=== PATIENT | female | born 1960 | race Caucasian/White ===

== ENCOUNTER 2020-07-23 05:14 | Emergency (ER) | payer BC, OTHER ==
[2020-07-23] MEDS ORDERED: Morphine 4 MG/ML Syringe IVPUSH ONE (06:03)
[2020-07-23] MEDS ORDERED: Prochlorperazine 10 MG/2 ML SDV IVPUSH ONE (06:03)
[2020-07-23] MEDS ORDERED: Ketorolac 15 MG/ML SDV IVPUSH ONE (06:03)
--- NOTE | 2020-07-23 06:19 | EDM.PDOC ---
<Chas Stock - Last Filed: 07/23/20 07:12> ED HPI GENERAL MEDICAL PROBLEM - General Chief Complaint: Back Pain or Injury Stated Complaint: LOWER BACK ABD PAIN Time Seen by Provider: 07/23/20 05:19 - History of Present Illness INITIAL COMMENTS - FREE TEXT/NARRATIVE: HISTORY AND PHYSICAL: History of present illness: This 60-year-old female presents emergency department with a sudden onset of 6 to 7 hours of right upper quadrant pain. It is a bandlike sensation that goes around the chest but is mostly in the right upper quadrant and radiates towards the back. She did have some nausea and vomiting with this. No hematemesis or hematochezia. No diarrhea. She has had a similar episode in the past and it went away. She had a swallow study that was normal. She has never had her gallbladder checked. No recent alcohol ingestion. No urinary symptoms. No other associated signs or symptoms. No other modifying, aggravating or alleviating factors. Review of systems: A 10-point review of systems, other than pertinent positives and negatives as stated per HPI, is otherwise negative. Past medical history: As per history of present illness and as reviewed below otherwise noncontributory. Surgical history: As per history of present illness and as reviewed below otherwise noncontributory. Social history: No reported history of drug or alcohol abuse. Family history: As per history of present illness and as reviewed below otherwise noncontributory. Physical exam: VITAL SIGNS: Reviewed. GENERAL: Appears to be in acute pain. HEAD: No signs of head trauma. EYES: Pupils are equal. Extraocular motions intact. EARS: Hearing grossly intact. MOUTH: Oropharynx is normal. NECK: No adenopathy, no JVD. CHEST: Chest with clear breath sounds bilaterally. No wheezes, rales, or rho nchi. CARDIAC: Regular rate and rhythm. Normal S1 and S2, without murmurs, gallops, or rubs. VASCULAR: Peripheral pulses normal and equal in all extremities. ABDOMEN: Soft, right upper quadrant tenderness is mild. No distention. No rebound or guarding. No masses palpated. No CVA tenderness. MUSCULOSKELETAL: Good range of motion of all major joints. Extremities without clubbing, cyanosis or edema. NEUROLOGIC EXAM: Alert and oriented x 3. No focal sensory or motor deficits. Speech normal. Follows commands. PSYCHIATRIC: Mood normal. SKIN: No rash or lesions. Initial Differential Diagnosis & Plan: Cholecystitis, urolithiasis, choledocholithiasis, symptomatic cholelithiasis, gallstone pancreatitis, atypical presentation of pneumonia, ACS or PE. No hypoxemia. No significant swelling or hemoptysis. Doubt PE. No exertional symptoms. Pain was brought on by eating frozen pizza just before episode. More suggestive of biliary colic. Definitive disposition and diagnosis as appropriate pending reevaluation and review of above. denies pain at this time Pain Score (Numeric/FACES): 0 - Related Data Allergies Allergy/AdvReac Type Severity Reaction Status Date / Time No Known Allergies Allergy Verified 07/23/20 06:24 Home Meds: Home Meds atenoloL [Atenolol] 25 PO 07/23/20 [History] ED ROS GENERAL - Review of Systems Review Of Systems: See Below (noted) ED EXAM,LOWER BACK PAIN/INJURY - Physical Exam Exam: See Below (noted) ED LACERATION/WOUND PROCEDURES - Additional/Other Procedure(s) Other (Free Text) Procedure(s): Procedure: Limited Abdominal Ultrasound - Right Upper Quadrant Performed and interpreted by me; images recorded and archived Indication: Right upper quadrant/epigastric pain/flank pain Findings: - Gallstones are present -No pericholecystic fluid -Normal gallbladder wall thickness -Common bile duct not appreciated Interpretation: Gallstones are present No significant gallbladder wall thickening Common bile duct not appreciated Signed by Chas Stock M.D. #1 Interpretation EKG Interpretation Comments: 12 lead EKG interpretation Obtained: July 23, 2020 at 7:05 AM Rhythm: Sinus Rate: In V2 [place]: Normal Intervals: Normal ST/T Segments: No acute ischemic changes Interpretation: Sinus Rhythm Course - Re-Assessments/Exams Free Text/Narrative Re-Assessment/Exam: 07/23/20 07:14 It appears the patient has acute cholecystitis. She has a thickened gallbladder wall, right upper quadrant pain, gallstones, and will likely need surgical consultation. I will be signing out my patient to Dr. Raines, emergency medicine, and he will follow-up on the patient's complete metabolic panel which is still pending at time of discharge. I have ordered Zosyn as empiric coverage for antibiotics. My diagnostic impression: 1. Acute cholecystitis 2. History of COVID-19 infection recently tested negative Departure - Departure Disposition: Refer to Observation Clinical Impression: Acute cholecystitis - Discharge Information Referrals: Hawa Johnson ACCREDITED PHARMACY TECHNICIAN [Primary Care Provider] - Forms: ED Department Discharge <Oscar Raines - Last Filed: 07/23/20 07:58> ED HPI GENERAL MEDICAL PROBLEM - General Source of Information: Reports: Patient History Limitations: Reports: No Limitations Course - Vital Signs Last Recorded V/S: Last Vital Signs Temp 97.2 F 07/23/20 06:06 Pulse 111 H 07/23/20 06:06 Resp 18 07/23/20 06:06 BP 112/64 07/23/20 06:06 Pulse Ox 95 07/23/20 06:06 - Orders/Labs/Meds Orders: Active Orders 24 hr Category Date Time Status Patient Status [ADT] Routine ADT 07/23/20 07:55 Ordered EKG 12 Lead [EKG Documentation Completion] [RC] STAT Care 07/23/20 06:02 Active CORONAVIRUS COVID-19 PCR PHL Stat Lab 07/23/20 07:53 Ordered UA RFX ADELA AND CULT IF INDIC [URIN] Stat Lab 07/23/20 06:02 Ordered Piperacillin/Tazobactam [Piperacil-Tazobact] 4.5 gm Med 07/23/20 07:16 Active Sodium Chloride 0.9% [Normal Saline] 100 ml IV ONETIME Medication Orders Piperacillin Sod/Tazobactam (Sod 4.5 gm/ Sodium Chloride) 100 mls @ 100 mls/hr IV ONETIME ONE Stop: 07/23/20 08:15 Labs: Laboratory Tests 07/23/20 07/23/20 Range/Units 06:35 06:35 WBC 10.99 (4.0-11.0) K/uL RBC 4.95 (4.30-5.90) M/uL Hgb 16.2 H (12.0-16.0) g/dL Hct 47.6 H (36.0-46.0) % MCV 96.2 (80.0-98.0) fL MCH 32.7 H (27.0-32.0) pg MCHC 34.0 (31.0-37.0) g/dL RDW Std Deviation 42.6 (28.0-62.0) fl RDW Coeff of [place] 12 (11.0-15.0) % Plt Count 272 (150-400) K/uL MPV 10.40 (7.40-12.00) fL Neut % (Auto) 85.0 H (48.0-80.0) % Lymph % (Auto) 9.5 L (16.0-40.0) % [place] % (Auto) 5.4 (0.0-15.0) % Eos % (Auto) 0.0 (0.0-7.0) % Baso % (Auto) 0.1 (0.0-1.5) % Neut # (Auto) 9.4 H (1.4-5.7) K/uL Lymph # (Auto) 1.0 (0.6-2.4) K/uL [place] # (Auto) 0.6 (0.0-0.8) K/uL Eos # (Auto) 0.0 (0.0-0.7) K/uL Baso # (Auto) 0.0 (0.0-0.1) K/uL Nucleated RBC % 0.0 /100WBC Nucleated RBCs # 0 K/uL Sodium 140 (136-145) mmol/L Potassium 4.3 (3.5-5.1) mmol/L Chloride 101 (98-107) mmol/L Carbon Dioxide 29.4 (21.0-32.0) mmol/L BUN 13 (7.0-18.0) mg/dL Creatinine 0.7 (0.6-1.0) mg/dL Est Cr Clr Drug Dosing 71.58 mL/min Estimated GFR (MDRD) > 60.0 ml/min Glucose 127 H (74-106) mg/dL Calcium 9.5 (8.5-10.1) mg/dL Total Bilirubin 1.9 H (0.2-1.0) mg/dL AST 787 H (15-37) IU/L ALT 552 H (14-63) IU/L Alkaline Phosphatase 131 H (46-116) U/L Total Protein 7.8 (6.4-8.2) g/dL Albumin 4.1 (3.4-5.0) g/dL Globulin 3.7 (2.6-4.0) g/dL Albumin/Globulin Ratio 1.1 (0.9-1.6) Lipase 194 (73-393) U/L Meds: Medications Generic Name Dose Route Start Last Admin Trade Name Freq PRN Reason Stop Dose Admin Piperacillin Sod/Tazobactam 100 mls @ 100 mls/hr 07/23/20 07:16 Sod 4.5 gm/ Sodium Chloride IV 07/23/20 08:15 ONETIME ONE Discontinued Medications Generic Name Dose Route Start Last Admin Trade Name Freq PRN Reason Stop Dose Admin Ketorolac Tromethamine 15 mg 07/23/20 06:03 07/23/20 06:39 Toradol IVPUSH 07/23/20 06:04 Not Given ONETIME ONE Morphine Sulfate 4 mg 07/23/20 06:03 07/23/20 06:39 Morphine IVPUSH 07/23/20 06:04 Not Given ONETIME ONE Prochlorperazine Edisylate 10 mg 07/23/20 06:03 07/23/20 06:39 Compazine IVPUSH 07/23/20 06:04 10 mg ONETIME ONE Administration - Re-Assessments/Exams Free Text/Narrative Re-Assessment/Exam: 07/23/20 07:23 This patient was signed out to me from Dr. Stock at this time. Ultrasound is resulted and I am paging Dr. Perry. 07/23/20 07:[address] Perry, who agrees to admit patient. Any emergency conditions have been treated to the ability of the ED prior to admission. Departure - Departure Time of Disposition: 07:26 Condition: Good Sepsis Event Note (ED) - Focused Exam Vital Signs: Vital Signs Temp Pulse Resp BP Pulse Ox 07/23/20 06:06 97.2 F 111 H 18 112/64 95 - My Orders Last 24 Hours: My Active Orders 07/23/20 07:53 CORONAVIRUS COVID-19 PCR PHL Stat 07/23/20 07:55 Patient Status [ADT] Routine - Assessment/Plan Last 24 Hours: My Active Orders 07/23/20 07:53 CORONAVIRUS COVID-19 PCR PHL Stat 07/23/20 07:55 Patient Status [ADT] Routine
--- NOTE | 2020-07-23 06:57 | CR ---
INDICATION: Pain TECHNIQUE: Chest 1 view COMPARISON: None FINDINGS: Cardiovascular and mediastinum: Heart size and vasculature are normal in caliber and appearance. Lungs and pleural spaces: Lungs are clear. No sign of infiltrate or mass. No sign of pleural effusion. No pneumothorax. Bones and soft tissues: No significant findings. IMPRESSION: Normal chest. Dictated by David Genao MD @ Jul 23 2020 6:55AM Signed by Dr. David Genao @ Jul 23 2020 6:55AM
--- NOTE | 2020-07-23 07:04 | CT ---
INDICATION: Right upper quadrant abdomen pain. TECHNIQUE: CT abdomen and pelvis without contrast. COMPARISON: None. FINDINGS: Lower chest: Small ground glass infiltrates are in the right lower lobe. Liver: Normal in size and attenuation. No masses. Gallbladder and bile ducts: Questionable gallbladder wall thickening. No definite stones. No biliary dilatation. Pancreas: Unremarkable. No mass or inflammation. Spleen: Normal in size. No masses. Adrenal glands: Normal in size. No nodules. Kidneys: Single small nonobstructive stone is in the right kidney. No hydronephrosis. Kidneys otherwise normal. GI tract: Unremarkable. Normal in caliber. No sign of mass or inflammation. Status post appendectomy. Vasculature: Abdominal aorta normal in caliber. Lymph nodes: No lymphadenopathy. Abdominal wall/Omentum/Peritoneum: Small supraumbilical fat containing ventral hernia to the left of midline. No free air and no fluid collections. Pelvis: Unremarkable. No pelvic masses. Bones: Unremarkable for age. IMPRESSION: 1. Small ground-glass infiltrates in the right lower lobe consistent with acute pneumonitis. The appearance of the infiltrates would be consistent with COVID infection. 2. Questionable gallbladder wall thickening. No definite gallstones, however CT has a low sensitivity for gallstone detection. Right upper quadrant ultrasound should be considered for further assessment if there is concern for gallbladder disease. Please note that all CT scans at this facility use dose modulation, iterative reconstruction, and/or weight-based dosing when appropriate to reduce radiation dose to as low as reasonably achievable. Dictated by David Genao MD @ Jul 23 2020 6:55AM Signed by Dr. David Genao @ Jul 23 2020 7:01AM
[2020-07-23] MEDS ORDERED: Piperacillin/Tazobactam 4.5 GM in Sodium Chloride 0.9% 100 ML IV ONE (07:16)
--- NOTE | 2020-07-23 07:18 | US ---
INDICATION: Right upper quadrant abdomen pain. TECHNIQUE: Ultrasound abdomen limited. Sonographic images of the right upper quadrant were obtained using almonte-scale and color Doppler images. COMPARISON: CT abdomen pelvis July 23, 2020. FINDINGS: Liver: Diffusely echogenic consistent with fatty infiltration. No masses. No intrahepatic biliary dilatation. Gallbladder: Multiple gallbladder stones are present. There is gallbladder wall thickening measuring 4 mm. Common bile duct: 3 mm. Pancreas: Unremarkable. Right kidney: Normal in size. Normal echotexture and cortex. No masses, stones, or hydronephrosis. Vasculature: Proximal abdominal aorta and IVC are normal. IMPRESSION: Cholelithiasis with gallbladder wall thickening consistent with cholecystitis. Dictated by David Genao MD @ Jul 23 2020 7:15AM Signed by Dr. David Genao @ Jul 23 2020 7:17AM
[2020-07-23 07:31] LABS: BLOOD UREA NITROGEN,BUN 13 mg/dL (7.0-18.0); CARBON DIOXIDE,CO2 29.4 mmol/L (21.0-32.0); CHLORIDE,CL 101 mmol/L (98-107); GLUCOSE RANDOM 127 mg/dL (74-106); LIPASE 194 U/L (73-393); POTASSIUM,K 4.3 mmol/L (3.5-5.1); SODIUM,NA 140 mmol/L (136-145)
[2020-07-23] MEDS ORDERED: Sodium Chloride 0.9% 10 ML SDV IV PRN (08:26)
[2020-07-23] MEDS ORDERED: Sodium Chloride 0.9% 2.5 ML Syringe FLUSH PRN (08:26)
[2020-07-23] MEDS ORDERED: diphenhydrAMINE 50 MG/ML SDV IVPUSH PRN (08:26)
[2020-07-23] MEDS ORDERED: HYDROmorphone 2 MG/ML Syringe IVPUSH PRN (08:26)
[2020-07-23] MEDS ORDERED: Acetaminophen/HYDROcodone 325-5 MG Tab PO PRN (08:26)
[2020-07-23] MEDS ORDERED: Ondansetron 4 MG/2 ML SDV IVPUSH PRN (08:26)
[2020-07-23] MEDS ORDERED: Sodium Chloride 0.9% 10 ML Syringe FLUSH PRN (08:26)
[2020-07-23] MEDS ORDERED: Lactated Ringers 1,000 ML IV SCH (08:30)
[2020-07-23 08:53] LABS: HEMOGLOBIN A1C 5.6 % (4.5-6.2)
[2020-07-23 12:42] LABS: BLOOD UREA NITROGEN,BUN 11 mg/dL (7.0-18.0); CARBON DIOXIDE,CO2 30.1 mmol/L (21.0-32.0); CHLORIDE,CL 103 mmol/L (98-107); GLUCOSE RANDOM 110 mg/dL (74-106); POTASSIUM,K 4.3 mmol/L (3.5-5.1); SODIUM,NA 142 mmol/L (136-145)
[2020-07-23] MEDS ORDERED: Iopamidol 755 MG/ML 500 ML Multipack Bottle IVPUSH STA (13:24)
--- NOTE | 2020-07-23 13:24 | MR ---
INDICATION: right upper quadrant abdominal pain. COMPARISON: CT and ultrasound of the abdomen July 23, 2020. TECHNIQUE: MRCP; T1 and T2 weighted imaging; T2 haste imaging; diffusion weighted imaging. FINDINGS: Diffuse fatty infiltration of the liver. No focal hepatic or splenic pathology. No pancreatic pathology. No evidence of pancreatic ductal dilatation. no evidence of peripancreatic inflammatory changes. Cholelithiasis with thickening of the gallbladder wall. Nondilated common bile duct measuring 6 mm in diameter. No evidence of choledocholithiasis. No evidence of intrahepatic biliary duct system. No adrenal pathology. No obstructive uropathy or perinephric pathology . Imaging through the lung bases reveals patchy areas of peripheral alveolar consolidation right lower lobe compatible with COVID-19 infection. IMPRESSION: 1. Cholelithiasis with thickening of the gallbladder wall consistent with acute cholecystitis. 2. No evidence of choledocholithiasis. 3. No evidence of biliary duct dilatation. 4. Patchy peripheral alveolar consolidation right lung base; compatible with COVID-19. Dictated by Omar Machado MD @ Jul 23 2020 1:11PM Signed by Dr. Omar Machado @ Jul 23 2020 1:22PM
--- NOTE | 2020-07-23 13:33 | CT ---
INDICATION: COVID positive COMPARISON: None TECHNIQUE: : CT examination of the chest was performed with the uneventful intravenous administration of 100 cc of Omnipaque 350 while thin axial sections were obtained from above the apices of the lungs to the lung bases. Please note that all CT scans at this facility use dose modulation, iterative reconstruction, and/or weight-based dosing when appropriate to reduce radiation dose to as low as reasonably achievable. FINDINGS: : HEART and MEDIASTINUM: The heart size is normal. There is no mediastinal or hilar adenopathy or mass. There is no pericardial effusion. LUNGS: There are several patchy areas of ground glass. The volume of disease is low but it is abnormal and likely related to COVID associated lung disease. Lungs are otherwise normal. PLEURAL SPACES: There is no pleural effusion, pneumothorax or pleural based mass. VISUALIZED UPPER ABDOMEN: Hepatic steatosis. Possible gallbladder wall thickening. No calculi or biliary ductal dilatation. Sonography is recommended for further evaluation. OSSEOUS STRUCTURES: Age-appropriate appearance. No acute fracture or destructive process. TUBES and LINES: None. IMPRESSION: 1. There are several patchy areas of ground-glass in both lungs. While the volume of disease is relatively low, the appearance is abnormal. While nonspecific, it is consistent with COVID related lung disease. 2. Normal pleural spaces and mediastinum. 3. Hepatic steatosis. 4. Possible gallbladder wall thickening. Sonography should be considered Please note that all CT scans at this facility use dose modulation, iterative reconstruction, and/or weight-based dosing when appropriate to reduce radiation dose to as low as reasonably achievable. Dictated by Ulysses Arellano MD @ Jul 23 2020 1:22PM Signed by Dr. Ulysses Arellano @ Jul 23 2020 1:32PM
--- NOTE | 2020-07-23 16:40 | PCM.CONS ---
H&P History of Present Illness - General Date of Service: 07/23/20 Admit Problem/Dx: Admission Diagnosis/Problem Admission Diagnosis/Problem Acute cholecystitis - History of Present Illness Initial Comments - Free Text/Narative: Patient is a 60-year-old female who presented the emergency room this morning with back pain nausea and vomiting. The patient's past medical history significant for atrial fibrillation well controlled on atenolol as well as a recent diagnosis of Clomid. She was swabbed last and found to be positive. She had first developed symptoms on July 09. She states that she is no longer having cold-like symptoms. She denies shortness of breath chest pain or cough. She had pizza last evening for supper at around 9:30 developed back pain that radiated around her side to the epigastric area. She states that last spring she had a couple episodes of similar pain however not this severe. Overnight she developed nausea and vomiting and the pain did not subside. She presented to the emergency room this morning. She was slightly tachycardic with a heart rate of 111. Her blood pressure was normal on admission. She had tenderness in the upper abdomen. CBC showed a white blood cell count of 10.9 and elevated neutrophil percent of 85. Her hemoglobin was 16.2 with a slightly elevated hematocrit. Her BUN/creatinine were normal. Her LFTs were elevated with an AST of 787, ALT of 552, ALK Phos 131 and bilirubin of 1.9. CT scan showed patchy groundglass opacities in the lower right lobe of her lung, fatty infiltration of liver, and questionable gallbladder wall thickening. An ultras ound was performed that showed multiple gallstones within the gallbladder, slight wall thickening of the gallbladder at 4 mm, and a normal common bile duct with a measurement of 3 mm. She was kept nothing by mouth, given IV fluids, as well as IV Zosyn. Her pain subsided and she no longer felt nauseous. Her tachycardia improved with fluids. Given the transaminitis, an MRCP was performed. This showed fatty infiltration of liver and acute cholecystitis with no evidence of choledocholithiasis. She underwent a CT scan of the chest which showed small patchy groundglass opacities throughout the lungs with no evidence of any other acute process. It was felt that these were consistent with her covert diagnosis. These were low volume and her chest x-ray did appear clear. Labs were repeated. Her AST and ALT elevated to 13,000 and 1000 respectively. Her alkaline phosphatase and bilirubin stayed relatively the same. The patient noted her urine to appear darker this afternoon. Her oxygen saturations stayed in the low to mid 90s on room air. Lactate was 1.2. denies pain at this time Pain Score (Numeric/FACES): 0 - Related Data Allergies/Adverse Reactions: Allergies Allergy/AdvReac Type Severity Reaction Status Date / Time No Known Allergies Allergy Verified 07/23/20 06:24 Home Medications: Home Meds atenoloL [Atenolol] 25 PO 07/23/20 [History] Past Medical History - Past Health History Medical/Surgical History: Denies Medical/Surgical History HEENT History: Reports: None Cardiovascular History: Reports: Other (See Below) Other Cardiovascular History: irregular heartbeat at times Respiratory History: Reports: None, Other (See Below) Other Respiratory History: Diagnosed COVID 2019 Gastrointestinal History: Reports: None Genitourinary History: Reports: None HEAD OF INSIGHT History: Reports: None Musculoskeletal History: Reports: None Neurological History: Reports: None Psychiatric History: Reports: None Endocrine/Metabolic History: Reports: None Hematologic History: Reports: None Oncologic (Cancer) History: Reports: None Dermatologic History: Reports: None - Infectious Disease History Infectious Disease History: Reports: None - Past Surgical History Head Surgeries/Procedures: Reports: None Social & Family History - Family History Family Medical History: Noncontributory - Tobacco Use Tobacco Use Status *Q: Never Tobacco User Second Hand Smoke Exposure: No - Caffeine Use Caffeine Use: Reports: Coffee, Soda - Recreational Drug Use Recreational Drug Use: No H&P Review of Systems - Review of Systems: Review Of Systems: Comprehensive ROS is negative, except as noted in HPI. Exam - Exam Exam: See Below - Vital Signs Vital Signs: Last Vital Signs Temp 36.2 C 07/23/20 06:06 Pulse 94 07/23/20 14:23 Resp 17 07/23/20 10:11 BP 137/55 L 07/23/20 14:23 Pulse Ox 98 07/23/20 14:23 Weight: 86.183 kg - Exam Quality Assessment: Supplemental Oxygen General: Alert, Oriented HEENT: Conjunctiva Clear, Mucosa Moist & [place], Posterior Pharynx Clear Neck: Supple, Trachea Midline Lungs: Clear to Auscultation, Normal Respiratory Effort Cardiovascular: Regular Rate, Regular Rhythm GI/Abdominal Exam: Soft, Non-Tender, No Distention, No Mass Back Exam: Normal Inspection Extremities: Normal Inspection - Patient Data Lab Results Last 24 hrs: Laboratory Results - last 24 hr 07/23/20 07/23/20 07/23/20 Range/Units 06:35 06:35 06:35 WBC 10.99 (4.0-11.0) K/uL RBC 4.95 (4.30-5.90) M/uL Hgb 16.2 H (12.0-16.0) g/dL Hct 47.6 H (36.0-46.0) % MCV 96.2 (80.0-98.0) fL MCH 32.7 H (27.0-32.0) pg MCHC 34.0 (31.0-37.0) g/dL RDW Std Deviation 42.6 (28.0-62.0) fl RDW Coeff of [place] 12 (11.0-15.0) % Plt Count 272 (150-400) K/uL MPV 10.40 (7.40-12.00) fL Neut % (Auto) 85.0 H (48.0-80.0) % Lymph % (Auto) 9.5 L (16.0-40.0) % [place] % (Auto) 5.4 (0.0-15.0) % Eos % (Auto) 0.0 (0.0-7.0) % Baso % (Auto) 0.1 (0.0-1.5) % Neut # (Auto) 9.4 H (1.4-5.7) K/uL Lymph # (Auto) 1.0 (0.6-2.4) K/uL [place] # (Auto) 0.6 (0.0-0.8) K/uL Eos # (Auto) 0.0 (0.0-0.7) K/uL Baso # (Auto) 0.0 (0.0-0.1) K/uL Nucleated RBC % 0.0 /100WBC Nucleated RBCs # 0 K/uL Lactate (0.20-2.00) mmol/L Sodium 140 (136-145) mmol/L Potassium 4.3 (3.5-5.1) mmol/L Chloride 101 (98-107) mmol/L Carbon Dioxide 29.4 (21.0-32.0) mmol/L BUN 13 (7.0-18.0) mg/dL Creatinine 0.7 (0.6-1.0) mg/dL Est Cr Clr Drug Dosing 71.58 mL/min Estimated GFR (MDRD) > 60.0 ml/min Glucose 127 H (74-106) mg/dL Hemoglobin A1c 5.6 (4.5-6.2) % Calcium 9.5 (8.5-10.1) mg/dL Total Bilirubin 1.9 H (0.2-1.0) mg/dL AST 787 H (15-37) IU/L ALT 552 H (14-63) IU/L Alkaline Phosphatase 131 H (46-116) U/L Total Protein 7.8 (6.4-8.2) g/dL Albumin 4.1 (3.4-5.0) g/dL Globulin 3.7 (2.6-4.0) g/dL Albumin/Globulin Ratio 1.1 (0.9-1.6) Lipase 194 (73-393) U/L SARS-CoV-2 RNA ([facility]) (NEGATIVE) 07/23/20 07/23/20 07/23/20 Range/Units 07:45 12:03 12:03 WBC 5.31 (4.0-11.0) K/uL RBC 4.78 (4.30-5.90) M/uL Hgb 15.6 (12.0-16.0) g/dL Hct 46.1 H (36.0-46.0) % MCV 96.4 (80.0-98.0) fL MCH 32.6 H (27.0-32.0) pg MCHC 33.8 (31.0-37.0) g/dL RDW Std Deviation 43.1 (28.0-62.0) fl RDW Coeff of [place] 12 (11.0-15.0) % Plt Count 247 (150-400) K/uL MPV 10.00 (7.40-12.00) fL Neut % (Auto) 75.5 (48.0-80.0) % Lymph % (Auto) 15.1 L (16.0-40.0) % [place] % (Auto) 9.2 (0.0-15.0) % Eos % (Auto) 0.0 (0.0-7.0) % Baso % (Auto) 0.2 (0.0-1.5) % Neut # (Auto) 4.0 (1.4-5.7) K/uL Lymph # (Auto) 0.8 (0.6-2.4) K/uL [place] # (Auto) 0.5 (0.0-0.8) K/uL Eos # (Auto) 0.0 (0.0-0.7) K/uL Baso # (Auto) 0.0 (0.0-0.1) K/uL Nucleated RBC % 0.0 /100WBC Nucleated RBCs # 0 K/uL Lactate (0.20-2.00) mmol/L Sodium 142 (136-145) mmol/L Potassium 4.3 (3.5-5.1) mmol/L Chloride 103 (98-107) mmol/L Carbon Dioxide 30.1 (21.0-32.0) mmol/L BUN 11 (7.0-18.0) mg/dL Creatinine 0.7 (0.6-1.0) mg/dL Est Cr Clr Drug Dosing 71.58 mL/min Estimated GFR (MDRD) > 60.0 ml/min Glucose 110 H (74-106) mg/dL Hemoglobin A1c (4.5-6.2) % Calcium 9.3 (8.5-10.1) mg/dL Total Bilirubin 2.0 H (0.2-1.0) mg/dL AST 1361 H (15-37) IU/L ALT 1055 H (14-63) IU/L Alkaline Phosphatase 135 H (46-116) U/L Total Protein 7.2 (6.4-8.2) g/dL Albumin 3.8 (3.4-5.0) g/dL Globulin 3.4 (2.6-4.0) g/dL Albumin/Globulin Ratio 1.1 (0.9-1.6) Lipase (73-393) U/L SARS-CoV-2 RNA ([facility]) POSITIVE H (NEGATIVE) 07/23/20 Range/Units 14:48 WBC (4.0-11.0) K/uL RBC (4.30-5.90) M/uL Hgb (12.0-16.0) g/dL Hct (36.0-46.0) % MCV (80.0-98.0) fL MCH (27.0-32.0) pg MCHC (31.0-37.0) g/dL RDW Std Deviation (28.0-62.0) fl RDW Coeff of [place] (11.0-15.0) % Plt Count (150-400) K/uL MPV (7.40-12.00) fL Neut % (Auto) (48.0-80.0) % Lymph % (Auto) (16.0-40.0) % [place] % (Auto) (0.0-15.0) % Eos % (Auto) (0.0-7.0) % Baso % (Auto) (0.0-1.5) % Neut # (Auto) (1.4-5.7) K/uL Lymph # (Auto) (0.6-2.4) K/uL [place] # (Auto) (0.0-0.8) K/uL Eos # (Auto) (0.0-0.7) K/uL Baso # (Auto) (0.0-0.1) K/uL Nucleated RBC % /100WBC Nucleated RBCs # K/uL Lactate 1.2 (0.20-2.00) mmol/L Sodium (136-145) mmol/L Potassium (3.5-5.1) mmol/L Chloride (98-107) mmol/L Carbon Dioxide (21.0-32.0) mmol/L BUN (7.0-18.0) mg/dL Creatinine (0.6-1.0) mg/dL Est Cr Clr Drug Dosing mL/min Estimated GFR (MDRD) ml/min Glucose (74-106) mg/dL Hemoglobin A1c (4.5-6.2) % Calcium (8.5-10.1) mg/dL Total Bilirubin (0.2-1.0) mg/dL AST (15-37) IU/L ALT (14-63) IU/L Alkaline Phosphatase (46-116) U/L Total Protein (6.4-8.2) g/dL Albumin (3.4-5.0) g/dL Globulin (2.6-4.0) g/dL Albumin/Globulin Ratio (0.9-1.6) Lipase (73-393) U/L SARS-CoV-2 RNA ([facility]) (NEGATIVE) Result Diagrams: 07/23/20 12:03 07/23/20 12:03 Sepsis Event Note - Evaluation Sepsis Screening Result: No Definite Risk - Focused Exam Vital Signs: Vital Signs Temp Pulse Resp BP Pulse Ox 07/23/20 14:23 94 137/55 L 98 07/23/20 13:53 62 126/65 93 L 07/23/20 13:33 67 127/67 98 07/23/20 11:44 70 110/51 L 94 L 07/23/20 11:13 82 125/81 97 07/23/20 10:33 63 112/55 L 94 L 07/23/20 10:11 64 17 107/51 L 97 07/23/20 09:53 69 109/87 95 07/23/20 09:03 85 101/51 L 95 07/23/20 08:33 60 104/55 L 93 L 07/23/20 06:06 36.2 C 111 H 18 112/64 95 Consult PN Assessment/Plan (1) Acute cholecystitis SNOMED Code(s): 66980001 Code(s): K81.0 - ACUTE CHOLECYSTITIS Current Visit: Yes (2) COVID-19 SNOMED Code(s): 993315522 Code(s): U07.1 - COVID-19 Current Visit: Yes (3) Transaminitis SNOMED Code(s): 916866901, 290230926 Code(s): R74.01 - ELEVATION OF LEVELS OF LIVER TRANSAMINASE LEVELS Current Visit: Yes Problem List Initiated/Reviewed/Updated: Yes My Orders Last 24 Hours: My Active Orders 07/23/20 Breakfast Nothing Per Oral Diet [DIET] 07/23/20 08:26 Intake and Output [RC] Q4HR Oxygen Therapy [RC] PRN RT Incentive Spirometry [RC] Q1HWA Up ad Roxann [RC] ASDIRECTED Vital Signs [RC] PER UNIT ROUTINE Acetaminophen/HYDROcodone [[place] 325-5 MG] 2 tab PO Q4H PRN HYDROmorphone [Dilaudid] 0.5 mg IVPUSH Q1H PRN Ondansetron [Zofran] 4 mg IVPUSH Q6H PRN Sodium Chloride 0.9% [Normal Saline] 10 ml IV ASDIRECTED PRN Sodium Chloride 0.9% [Saline Flush] 10 ml FLUSH ASDIRECTED PRN Sodium Chloride 0.9% [Saline Flush] 2.5 ml FLUSH ASDIRECTED PRN diphenhydrAMINE [Benadryl] 25 mg IVPUSH Q4H PRN Peripheral IV Insertion Adult [OM.PC] Urgent Resuscitation Status Routine 07/23/20 08:30 Lactated Ringers [Ringers, Lactated] 1,000 ml IV ASDIRECTED 07/24/20 05:11 CBC WITH AUTO DIFF [HEME] AM COMPREHENSIVE METABOLIC PN,CMP [CHEM] AM 07/24/20 07:30 Omeprazole 20 mg PO ACBREAKFAST Plan: Given the acute rise in the patient's liver function tests there is still a possibility of choledocholithiasis. She could have passed a stone earlier or the acute inflammation from her gallbladder along with [place] it has resulted in the rapid elevation of her liver function tests. Either way given her [place] dated and this high transaminitis I feel she needs to be referred to a hospital with greater resources as surgery carries a higher risk. I visited with my fellow surgeons as well as her anesthesia team who felt that this was appropriate. I visited with the patient and her regarding all of her test findings and the need for transfer. They verbalized understanding and wished to proceed. She will be transferred to [facility] given their ability to perform an ERCP if necessary.
[2020-07-24] MEDS ORDERED: Omeprazole 20 MG Cap.CR PO SCH (07:30)
== END 2020-07-23 17:15 | disposition other institution (70) ==
LOC: MW.ED 05:14
DX: K81.0 Acute cholecystitis (principal); Z86.19 Personal history of other infectious and parasitic diseases
CPT/HCPCS: 36415; 71045; 71260; 74176; 74181; 76705; 80053; 81001; 83036; 83605; 83690; 85025; 87086; 87635; 93005; 96365; 96375; 99285; J0780; J2543; J7050; J7120; Q9967; 93010; 99284; U0002